=== PATIENT | female | born 1980 | race Caucasian/White ===

== ENCOUNTER 2022-06-20 20:59 | Emergency (ER) | payer BC, OTHER ==
[2022-06-20] MEDS ORDERED: LORazepam 2 MG/ML SDV IM ONE (21:09)
== END 2022-06-20 22:00 | disposition home or self-care (01) ==
LOC: LL.ED 20:59
DX: F41.0 Panic disorder [episodic paroxysmal anxiety] (principal); F43.10 Post-traumatic stress disorder, unspecified
CPT/HCPCS: 96372; 99283; J2060